=== PATIENT | female | born 1970 | race Caucasian/White ===

== ENCOUNTER → 2016-12-02 | Outpatient (CLI) | payer OTHER ==
[~2016-12-02] VITALS: Ht 160 cm; Wt 77.1 kg
[~2016-12-02] MED LIST: DEPAKOTE250 MG PO; LIBRAX, CLI1 CAPSULE PO; RANITIDINE HCL300 MG PO
[2016-12-02 10:25] LABS: HEMATOCRIT 42.1 % (36.0-46.0); MCH 29.3 PG (29.0-34.0); MCHC 32.1 G/DL (30.0-36.0); MCV 91.3 FL (83-99); MEAN PLAT.VOLUME 10.1 uM^3 (9.5-12.4); PLATELET COUNT 288 K/uL (156-360); RBC DIS.WIDTH-CV 12.3 % (11.8-14.6); RBC DIS.WIDTH-SD 41.3 % (39-53); RED BLOOD COUNT 4.61 M/uL (3.80-5.20); WHITE BLOOD COUNT 6.1 K/uL (4.1-10.2)
[2016-12-02 10:31] LABS: PROTHROMBIN TIME 10.7 SEC (10.2-12.9)
[2016-12-02 10:34] LABS: PTT 30.9 SEC (25-37)
== END | disposition home or self-care (01) ==
LOC: OPR 09:38 → EDSTATUS 10:00 → OPR 10:00
PROVIDERS: Thoracic Surgery (Cardiothoracic Vascular Surgery)
DX: C34.11 Malignant neoplasm of upper lobe, right bronchus or lung (principal); J45.909 Unspecified asthma, uncomplicated; Z77.22 Contact with and (suspected) exposure to environmental tobacco smoke (acute) (chronic); Z80.0 Family history of malignant neoplasm of digestive organs
CPT/HCPCS: 71010; 77012; 85027; 85610; 85730; 88305; 88341 TC; 88342 TC; J3010

== ENCOUNTER → 2016-12-16 | Outpatient (CLI) | payer OTHER ==
[2016-12-16 10:18] LABS: BASE EXCESS 0.1 mEq/L (-3 to +3); BICARBONATE 23.8 mEq/L (22-26); CARBOXY HGB 2.5 % (0-5); COMMENTS - BLOOD GASES A+C+; METHEMOGLOBIN 1.4 % (0-1.5); PCO2 35 mm Hg (35-45); PO2 97 mm Hg (80-100); SITE RR; pH 7.44 (7.35-7.45)
== END | disposition home or self-care (01) ==
LOC: RES 09:42
PROVIDERS: Thoracic Surgery (Cardiothoracic Vascular Surgery)
DX: R91.1 Solitary pulmonary nodule (principal); C34.90 Malignant neoplasm of unspecified part of unspecified bronchus or lung
CPT/HCPCS: 36600; 82803; 94010; 94726; 94729

== ENCOUNTER 2017-01-29 21:11 | Inpatient (IN) | payer OTHER ==
[~2017-01-29] VITALS: Ht 160 cm; Wt 73.5 kg
[~2017-01-29 21:11] MED LIST changes: +COLACE100 MG PO; +HYDROCODON-ACE1 EAC7 PO
[2017-01-30 07:41] LABS: PROTHROMBIN TIME 11.2 SEC (10.2-12.9)
[2017-01-30 07:44] LABS: PTT 29.7 SEC (25-37)
[2017-01-30 19:00] VITALS: BP 129/91
[2017-01-30 19:28] LABS: METH RESISTANT S AUREUS PCR NEGATIVE (NEGATIVE)
[2017-01-30 20:00] VITALS: BP 121/80
[2017-01-30 20:11] LABS: PROBE CHECK PASS; SPECIMEN PROCESSING CONTROL PASS
[2017-01-30 22:00] VITALS: BP 0/0; BP 118/78
[2017-01-31] VITALS (8 sets, daily range): BP systolic 116–144; BP diastolic 69–88
[2017-01-31 06:41] LABS: MCHC 32.4 G/DL (30.0-36.0); MCV 89.4 FL (83-99); MEAN PLAT.VOLUME 10.3 uM^3 (9.5-12.4); PLATELET COUNT 315 K/uL (156-360); RBC DIS.WIDTH-CV 12.6 % (11.8-14.6); RBC DIS.WIDTH-SD 41.3 % (39-53); RED BLOOD COUNT 3.69 M/uL (3.80-5.20); WHITE BLOOD COUNT 14.2 K/uL (4.1-10.2)
[2017-01-31 07:03] LABS: ANION GAP 7 MEQ/L (2-14); CHLORIDE 105 MEQ/L (99-109); GFR ESTIMATE (CALCULATED) > 59 mL/min/; GLUCOSE 99 mg/dL (70-99); POTASSIUM 4.3 MEQ/L (3.7-5.4); SAMPLE HEMOLYSIS CHECK 0; SAMPLE ICTERIC CHECK 0; SAMPLE LIPEMIA CHECK 0; SODIUM 138 MEQ/L (136-147); UREA NITROGEN (BUN) 9 mg/dL (9-23)
[2017-02-01] VITALS (7 sets, daily range): BP systolic 115–152; BP diastolic 68–91
[2017-02-01 05:43] LABS: HEMATOCRIT 32.5 % (36.0-46.0); MCH 28.9 PG (29.0-34.0); MCHC 31.7 G/DL (30.0-36.0); MEAN PLAT.VOLUME 10.5 uM^3 (9.5-12.4); PLATELET COUNT 262 K/uL (156-360); RBC DIS.WIDTH-CV 12.9 % (11.8-14.6); RBC DIS.WIDTH-SD 42.5 % (39-53); RED BLOOD COUNT 3.57 M/uL (3.80-5.20); WHITE BLOOD COUNT 9.7 K/uL (4.1-10.2)
[2017-02-01 05:52] LABS: CHLORIDE 105 mEq/L (99-109); SODIUM 142 mEq/L (136-147)
[2017-02-01 05:54] LABS: GLUCOSE 109 mg/dL (70-99)
[2017-02-01 05:55] LABS: ANION GAP 9 MEQ/L (2-14)
[2017-02-01 05:58] LABS: GFR ESTIMATE (CALCULATED) > 59 mL/min/; UREA NITROGEN (BUN) 7 mg/dL (9-23)
[2017-02-02] VITALS: BP 164/90
[2017-02-02 05:00] VITALS: BP 162/66
[2017-02-02 06:31] LABS: HEMATOCRIT 34.1 % (36.0-46.0); MCHC 32.3 G/DL (30.0-36.0); MEAN PLAT.VOLUME 9.8 uM^3 (9.5-12.4); PLATELET COUNT 278 K/uL (156-360); RBC DIS.WIDTH-CV 12.8 % (11.8-14.6); RBC DIS.WIDTH-SD 41.9 % (39-53); RED BLOOD COUNT 3.79 M/uL (3.80-5.20); WHITE BLOOD COUNT 10.6 K/uL (4.1-10.2)
[2017-02-02 07:53] LABS: ANION GAP 7 MEQ/L (2-14); CHLORIDE 102 MEQ/L (99-109); GFR ESTIMATE (CALCULATED) > 59 mL/min/; GLUCOSE 113 mg/dL (70-99); POTASSIUM 4.1 MEQ/L (3.7-5.4); SAMPLE HEMOLYSIS CHECK 0; SAMPLE ICTERIC CHECK 0; SAMPLE LIPEMIA CHECK 0; SODIUM 138 MEQ/L (136-147); UREA NITROGEN (BUN) 6 mg/dL (9-23)
[2017-02-02 08:00] VITALS: BP 135/84
[2017-02-02 12:00] VITALS: BP 114/83
[2017-02-02 16:00] VITALS: BP 110/73
[2017-02-02 20:00] VITALS: BP 116/66
[2017-02-03] VITALS: BP 130/80
[2017-02-03 04:00] VITALS: BP 125/70
[2017-02-03 08:00] VITALS: BP 115/81
[2017-02-03 14:00] VITALS: BP 124/79
[2017-02-03 18:00] VITALS: BP 110/87
[2017-02-03 20:00] VITALS: BP 109/81
[2017-02-04] VITALS: BP 148/80
[2017-02-04 05:00] VITALS: BP 111/75
[2017-02-04 05:26] LABS: HEMATOCRIT 31.7 % (36.0-46.0); MCH 29.6 PG (29.0-34.0); MCHC 32.5 G/DL (30.0-36.0); MCV 91.1 FL (83-99); MEAN PLAT.VOLUME 10.3 uM^3 (9.5-12.4); PLATELET COUNT 281 K/uL (156-360); RED BLOOD COUNT 3.48 M/uL (3.80-5.20)
[2017-02-04 06:09] LABS: ANION GAP 6 MEQ/L (2-14); CHLORIDE 104 MEQ/L (99-109); GFR ESTIMATE (CALCULATED) > 59 mL/min/; GLUCOSE 99 mg/dL (70-99); POTASSIUM 4.2 MEQ/L (3.7-5.4); SAMPLE HEMOLYSIS CHECK 0; SAMPLE ICTERIC CHECK 0; SAMPLE LIPEMIA CHECK 0; SODIUM 139 MEQ/L (136-147); UREA NITROGEN (BUN) 9 mg/dL (9-23)
[2017-02-04 08:00] VITALS: BP 134/80
[2017-02-04 12:00] VITALS: BP 115/68
[2017-02-04 16:00] VITALS: BP 112/69
[2017-02-04] MEDS ORDERED: DOCUSATE SODIU100 MG PO (16:43)
[2017-02-04] MEDS ORDERED: DIGOXIN125 MCG PO (16:43)
[2017-02-04] MEDS ORDERED: LOPRESSOR25 MG PO (16:43)
[2017-02-04] MEDS ORDERED: HYDROCODON-ACE1 EAC7 PO (16:43)
[2017-02-04 18:00] VITALS: BP 110/87
== END 2017-02-04 18:38 | disposition home or self-care (01) | DRG 165 ==
LOC: ENRESERV 21:11 → 2SOUTH 01-30 06:46 → ENRESERV 01-30 09:12 → 2SOUTH 01-30 12:12 → ENRESERV 01-30 13:59 → 2SOUTH 01-30 15:12 → 4WEST 01-30 17:52
PROVIDERS: Thoracic Surgery (Cardiothoracic Vascular Surgery)
DX: C34.11 Malignant neoplasm of upper lobe, right bronchus or lung (principal); E83.52 Hypercalcemia; F41.0 Panic disorder [episodic paroxysmal anxiety]; K29.70 Gastritis, unspecified, without bleeding; K58.9 Irritable bowel syndrome, unspecified; D64.9 Anemia, unspecified; G43.909 Migraine, unspecified, not intractable, without status migrainosus; Q07.00 Arnold-Chiari syndrome without spina bifida or hydrocephalus; Z87.891 Personal history of nicotine dependence; Z90.49 Acquired absence of other specified parts of digestive tract; Z90.710 Acquired absence of both cervix and uterus; Z83.3 Family history of diabetes mellitus
CPT/HCPCS: 71010; 71020; 80048; 85027; 85610; 85730; 86850; 86900; 86901; 86920; 87641; 88305; 88309; 94010; 94640; 94640 76; 94760; 97530 GO; 97530 GP; 99202; J0131; J0330; J0690; J1100; J1160; J1170; J1200; J1644; J1885; J2175; J2250; J2405; J2710; J3010; J7050; J7120; S0020

== ENCOUNTER 2017-08-06 16:24 | Emergency (ER) | payer OTHER ==
[~2017-08-06] VITALS: Ht 160 cm; Wt 74.3 kg
[~2017-08-06 16:24] MED LIST changes: +DIGOXIN125 MCG PO; +DOCUSATE SODIU100 MG PO; +LOPRESSOR25 MG PO
[2017-08-06 18:24] VITALS: BP 134/78
== END 2017-08-06 18:25 | disposition home or self-care (01) ==
LOC: EME 16:24 → RME 16:24
DX: S20.211A Contusion of right front wall of thorax, initial encounter (principal); Z85.118 Personal history of other malignant neoplasm of bronchus and lung; Z90.2 Acquired absence of lung [part of]; X58.XXXA Exposure to other specified factors, initial encounter; Z88.5 Allergy status to narcotic agent
CPT/HCPCS: 71046; 99281; 99284